=== PATIENT | female | born 1985 | race Caucasian/White ===

== ENCOUNTER → 2017-10-02 | Outpatient (CLI) | payer OTHER ==
--- NOTE | 2017-10-02 16:45 | RADIOLOGY IMAGING REPORT ---
FACILITY: [facility] PATIENT NAME: Elsie Michaels : 1985 MR: [id number] V: [id number] EXAM DATE: ORDERING PHYSICIAN: MARLYS HODGES TECHNOLOGIST: Location: [facility] [place] Patient: Elsie Michaels : 1985 Visit/Account:[id number] Date of Sevice: 10/02/2017 US SINGLE ORGAN HISTORY: Periumbilical tenderness COMPARISON: None. FINDINGS: Multiple sonographic images in the periumbilical region were submitted demonstrating no evidence of a periumbilical hernia or mass lesion IMPRESSION: No sonographic abnormality identified in the periumbilical region Report Dictated By: Fabiana Jesus MD at 10/02/2017 4:39 PM Report E-Signed By: Fabiana Jesus MD at 10/02/2017 4:42 PM WSN:[email or web address]
== END ==
LOC: US 01:47
PROVIDERS: ATTEND Physician Assistant
DX: R10.815 Periumbilic abdominal tenderness (principal)
CPT/HCPCS: 76705

== ENCOUNTER → 2017-11-22 | Outpatient (CLI) | payer OTHER ==
[~2017-11-22] MED LIST: IOPAMIDOL 76% 75 ML INFUS BTL 75 ML ONE
--- NOTE | 2017-11-22 12:02 | RADIOLOGY IMAGING REPORT ---
FACILITY: [facility] PATIENT NAME: Elsie Michaels : 1985 MR: [id number] V: [id number] EXAM DATE: ORDERING PHYSICIAN: MARLYS HODGES TECHNOLOGIST: [place] [facility] [place] Elsie Michaels : 1985 Visit/Account:[id number] Date of Sevice: 11/22/2017 ABDOMEN/PELVIS WITH CONTRAST HISTORY: Periumbilical pain TECHNIQUE: Following administration of IV contrast contiguous axial images acquired through the abdom en/pelvis. Coronal and sagittal reformatting also performed. Dose Lowering Technique One of the following dose optimization techniques was utilized in the performance of this exam: Autom ated exposure control; adjustment of the mA and/or kV according to the patient's size; or use of an i terative reconstruction technique. Specific details can be referenced in the facility's radiology C T exam operational policy. CONTRAST: 75 mL Isovue-[id number] COMPARISON: Prior umbilical ultrasound October 02, 2017 FINDINGS: Visualized lung bases: Negative. Hepatobiliary: Negative. Spleen: Accessory splenule Adrenals: Negative. Pancreas: Negative. Kidneys ureters or bladder: Kidneys appear unremarkable. The bladder wall is mildly thickened which could be related to underdistention Genitalia: The right ovary contains a 2.1 cm cyst with slightly irregular sanchez GI: Negative. Vessels/spaces/nodes: Negative. Bones/soft tissues: There is no evidence of an umbilical hernia. No abnormal mass or collection safia ntified in the periumbilical region Visualized bones are unremarkable Additional findings: None pertinent. IMPRESSION: No evidence of a periumbilical hernia. No abnormal soft tissue mass or collection identified in the periumbilical region. The right ovary contains a 2.1 cm cyst with irregular sanchez. This may represent a collapsing cyst. If of concern pelvic ultrasound may be helpful Bladder wall is mildly thickened which could be related to underdistention with urine versus urinary tract infection Report Dictated By: Fabiana Jesus MD at 11/22/2017 11:15 AM Report E-Signed By: Fabiana Jesus MD at 11/22/2017 11:59 AM WSN:[email or web address]
== END ==
LOC: CT 01:44
PROVIDERS: ATTEND Physician Assistant
DX: N83.291 Other ovarian cyst, right side (principal)
CPT/HCPCS: 74177; Q9967